=== PATIENT | female | born 1990 | race Caucasian/White ===

== ENCOUNTER → 2017-05-19 | Outpatient (CLI) | payer OTHER ==
--- NOTE | 2017-05-19 10:57 | RAD ---
Ultrasound bilateral breasts Indication: Left breast pain. Left breast mass. Family history of breast cancer. Technique: Bilateral breast ultrasound. Comparison: None Findings: No solid or cystic lesions seen in the interrogated bilateral breasts. The skin is within normal limits. Impression: No sonographic abnormality seen in the breasts.
--- NOTE | 2017-05-19 12:08 | RAD ---
DATE: 05/19/2017 EXAM: MAMMO KEYSHA DIAG BILAT HISTORY: Left axillary breast pain. Mother had breast cancer. Baseline mammogram. COMPARISON: None This study was interpreted with the benefit of Computerized Aided Detection (CAD). FINDINGS: Breast Density: SCATTERED The breast parenchyma shows scattered fibroglandular densities. Breast parenchyma level B. The skin and nipples are within normal limits. No suspicious calcifications, spiculated masses or areas of architectural distortion. There is an oval-shaped mass with well-circumscribed margins in the upper outer posterior right breast measuring 1.1 cm approximately 13 cm from the nipple on MLO view. No mammographic abnormality in the left breast. IMPRESSION: Suggestion of intraparenchymal lymph node in the upper outer right breast. Additional ultrasound images were obtained after the initial ultrasound from the same day of the right breast in the upper outer quadrant. Please see separate ultrasound report from the same day. BI-RADS CATEGORY: 3 PROBABLE BENIGN FINDING(S-SHORT INTERVAL FOLLOW-UP SUGGESTED RECOMMENDED FOLLOW-UP: 6M 6 MONTH FOLLOW-UP. Ultrasound of the right upper outer quadrant in 6 months. PQRS compliance statement: Patient information was entered into a reminder system with a target due date for the next mammogram. Mammography is a sensitive method for finding small breast cancers, but it does not detect them all and is not a substitute for careful clinical examination. A negative mammogram does not negate a clinically suspicious finding and should not result in delay in biopsying a clinically suspicious abnormality. "Our facility is accredited by the [employer] Mammography Program."
== END | disposition home or self-care (01) ==
LOC: KCIC US 09:52
PROVIDERS: ATTEND Nurse Practitioner
DX: N63.20 Unspecified lump in the left breast, unspecified quadrant (principal); N64.4 Mastodynia; Z80.3 Family history of malignant neoplasm of breast
CPT/HCPCS: 76641; G0204; G0279; 77062; 77066

== ENCOUNTER 2017-06-01 14:13 | Day surgery (SDC) | payer OTHER ==
[~2017-06-01 14:13] MED LIST: DESFLURANE 61 TO 120 MINUTES IH ONE; DEXAMETHASONE SOD PHOS 20 MG/5 ML VIAL. ONE; GLYCOPYRROLATE 1 MG/5 ML VIAL. ONE; HYDROmorphone 2 MG/ML VIAL IV PRN; IV RINGERS,LACTATED 1000ML 1,000 ML IV SCH; LIDOCAINE 1% PF 2 ML VIAL. ID PRN; LIDOCAINE 2% PF Vial for OR 5 ML VIAL. ONE; MIDAZOLAM HCL/PF 2 MG/2 ML VIAL. ONE; MORPHINE SULFATE 2 MG/ML DISP.SYRIN. IV PRN; ONDANSETRON PF 4 MG/2 ML VIAL. IV PRN; ONDANSETRON PF 4 MG/2 ML VIAL. ONE; PHENYLEPHRINE 0.25% NASAL SPRAY 15ML BOTTLE. NS ONE; PROCHLORPERAZINE 10 MG/2 ML VIAL. IV PRN; PROPOFOL 0 ML IV ONE; PROPOFOL 20 ML IV ONE; ROCURONIUM 100 MG/10 ML VIAL. ONE; ROCURONIUM 50 MG/5 ML VIAL. ONE; SCOPOLAMINE 1.5MG PATCH. TD ONE; diphenhydrAMINE 50 MG/ML VIAL ONE; fentaNYL PF VIAL 100 MCG/2 ML VIAL IV PRN; fentaNYL PF VIAL 100 MCG/2 ML VIAL ONE; fentaNYL PF VIAL 250 MCG/5 ML VIAL ONE
[2017-06-01] MEDS ORDERED: NEOSTIGMINE METHYLSULFATE 5 MG/5 ML SYRINGE. ONE (14:27)
[2017-06-01] MEDS ORDERED: oxyCODONE/APAP 5/325 1 TAB TABLET PO PRN (14:30)
[2017-06-01 15:02] LABS: NEG OBC UR NEG; POS OBC UR POS
[2017-06-01] MEDS ORDERED: SEVOFLURANE 16 TO 30 MINUTES. IH ONE (15:05)
[2017-06-01] MEDS ORDERED: KETOROLAC 30 MG/ML INJ FOR OR. INJ ONE (15:05)
--- NOTE | 2017-06-01 15:34 | DISCH ---
DISCHARGE INSTRUCTIONS Condition on Discharge Condition on Discharge: Stable Activity After Discharge Activity Instructions for Disc: Avoid exertion Lifting Instructions after Dis: No heavy lifting Diet after Discharge Diet after Discharge: Level III Dysph, Chopped Wound Incision Care Wound/Incision Care: Ice to area for comfort Contacting the DRBill after DC Call your doctor for: If your condition worsens BETTE DARBY MD Jun 01, 2017 15:33
--- NOTE | 2017-06-01 15:36 | PDOC4 ---
OPERATIVE NOTE Date: Date: Jun 01, 2017 Pre-Op Diagnosis: chronic tonsillitis Post-Op Diagnosis: ABHI Procedure Performed: tonsillectomy & adenoidectomy Surgeon: Dr. Dafne Cao Anesthesia Type: GETA Blood Loss: <20mL Specimans Obtained: left and right tonsil Findings: 1. 3+ cryptic tonsils 2. Minimal adenoid tissue 3. Swollen distal uvula at end of the case 4. Inflammation of posterior nasal cavity Complications: none Operative Note: Dictation #[id number] DAFNE CAO MD Jun 01, 2017 15:36
[2017-06-01] MEDS ORDERED: oxyCODONE ORAL SOLUTION 5 MG/5 ML SOLUTION PEG STA (15:55)
[2017-06-01] MEDS ORDERED: DOCU-109 PO (16:03)
[2017-06-01] MEDS ORDERED: ONDA4TAB10 SL (16:05)
[2017-06-01] MEDS ORDERED: ACET160O49 PO (16:06)
[2017-06-01 16:45] VITALS: BP 139/65
--- NOTE | 2017-06-01 17:04 | OP ---
DATE OF SURGERY: 06/01/2017 PREOPERATIVE DIAGNOSIS: Chronic tonsillitis. POSTOPERATIVE DIAGNOSIS: Chronic tonsillitis. PROCEDURE PERFORMED: Tonsillectomy and adenoidectomy. SURGEON: Dafne Cao MD ANESTHESIA: General endotracheal anesthesia. INDICATIONS FOR SURGERY: The patient is a 27-year-old female with a history of chronic tonsillitis. The patient has been suffering with monthly infections for the past several years. The decision was made based on the above procedure. After risks, benefits, and alternatives of surgery were thoroughly discussed with the patient, an informed consent was obtained. INTRAOPERATIVE FINDINGS: 1. A 3+ tonsillar hypertrophy with cryptic tonsils. 2. Minimal residual adenoid tissue. 3. At the end of the case, there was significant uvula edema and so the uvula was trimmed. 4. Significant inflammation of the posterior inferior turbinates within the nasal cavity. ESTIMATED BLOOD LOSS: Less than 5 mL. DESCRIPTION OF THE PROCEDURE: The patient was brought back to the operating room per anesthesia and intubated in standard fashion. The patient was then turned 90 degrees in the room. A shoulder roll was placed under her shoulders and her head was draped in the standard fashion. McIvor mouth gag was used to expose the patient's oropharynx and place the patient in suspension. On palpation, there was no evidence of a submucosal cleft to the soft palate or medialized carotid arteries. The red rubber catheter was inserted through the patient's nose and out through the patient's oropharynx to elevate the soft palate. Laryngeal mirror was then used to visualize the patient's nasopharynx. The patient had minimal residual adenoid tissue and these were bovied down using suction Bovie electrocautery. There was significant inflammation noted of the posterior nasal cavity and especially along the posterior aspect of the inferior turbinates. No tanisha purulence or discharge was noted. The left and followed by the right tonsil was dissected off the tonsillar fossa using Bovie electrocautery. Adequate hemostasis was confirmed using suction Bovie electrocautery. The anterior and tonsillar pillars were then closed with simple interrupted sutures of 3-0 Vicryl. I ensured adequate hemostasis in the nasopharynx and oropharynx. Orogastric tube was placed to suction out all stomach and hypopharyngeal contents. On visualization of the oropharynx at the end of the case, the patient was found to have significant distal uvula edema. To prevent further edema and swelling, the distal aspect of the uvula was trimmed off in a skiving fashion and adequate hemostasis of the residual uvula was obtained. After this was completed, the patient was turned back over to anesthesia and extubated without complication. All sponge, needle and instrument counts were correct at the end of the case. COMPLICATIONS: None. DISPOSITION: Stable and transferred to recovery room. DAFNE CAO MD DR: FEROZ/mariela JOB#: [id number] / [id number] ALO
--- NOTE | 2017-06-05 13:44 | PATHOLOGY ---
PATHOLOGY REPORT * * * * * * * * FINAL DIAGNOSIS: Bilateral palatine tonsils, excision: - Chronic tonsillitis. (JPM:mml; 06/05/2017) REPORT ELECTRONICALLY SIGNED BY: Collins Heard M.D. DATE/TIME: 06/05/2017 13:42 * * * * * * * * GROSS PATHOLOGY: Received in formalin, labeled "ray Keen," are two tonsils measuring 2.8 x 1.8 x 1.3 cm and 2.5 x 2.1 x 1.0 cm in maximum dimensions. The mucosal surfaces are thorpe with the typical crypts identified. Sectioning reveals lobulated, homogeneous light thorpe cut surfaces with no grossly identifiable lesions. [employer] Professor sections from each tonsil are submitted in cassette A1. (SDY; 06/02/2017) INITIAL CPT CODE(S): A; 47751 Professional services [place] [facility] [place] [address] Technical services performed by [facility] at [address] [place] [address], [facility] [address] [place] [address]. SPECIMEN(S) RECEIVED: A.Tonsils CLINICAL HISTORY: Chronic tonsillitis PATIENT: PABLO RODRIGUEZ /AGE: 1004/12/1990 (Age: 27) PATIENT #: [id number] ALT CASE #: SPECIMEN COLLECTION DATE: 06/01/2017 SPECIMEN RECEIVED DATE: 06/02/2017 [facility] - [address] [place] [address] - PHONE: [phone] * * * END OF REPORT * * *
== END 2017-06-01 17:16 | disposition home or self-care (01) ==
LOC: SURG 14:13
PROVIDERS: ATTEND Otolaryngology
DX: J35.01 Chronic tonsillitis (principal); E66.9 Obesity, unspecified; F32.9 Major depressive disorder, single episode, unspecified; Z90.49 Acquired absence of other specified parts of digestive tract; Z72.0 Tobacco use
CPT/HCPCS: 42821; 81025; J1100; J1200; J1885; J2250; J2405; J2704; J2710; J3010; J3490; J2001

== ENCOUNTER 2018-03-23 11:56 | Emergency (ER) | payer OTHER ==
[~2018-03-23] VITALS: Ht 165.1 cm; Wt 86.2 kg
[~2018-03-23 11:56] MED LIST changes: +ACET160O49 PO; -DESFLURANE 61 TO 120 MINUTES IH ONE; -DEXAMETHASONE SOD PHOS 20 MG/5 ML VIAL. ONE; +DOCU-109 PO; -GLYCOPYRROLATE 1 MG/5 ML VIAL. ONE; -HYDROmorphone 2 MG/ML VIAL IV PRN; -IV RINGERS,LACTATED 1000ML 1,000 ML IV SCH; -LIDOCAINE 1% PF 2 ML VIAL. ID PRN; -LIDOCAINE 2% PF Vial for OR 5 ML VIAL. ONE; -MIDAZOLAM HCL/PF 2 MG/2 ML VIAL. ONE; -MORPHINE SULFATE 2 MG/ML DISP.SYRIN. IV PRN; +ONDA4TAB10 SL; -ONDANSETRON PF 4 MG/2 ML VIAL. IV PRN; -ONDANSETRON PF 4 MG/2 ML VIAL. ONE; -PHENYLEPHRINE 0.25% NASAL SPRAY 15ML BOTTLE. NS ONE; -PROCHLORPERAZINE 10 MG/2 ML VIAL. IV PRN; -PROPOFOL 0 ML IV ONE; -PROPOFOL 20 ML IV ONE; -ROCURONIUM 100 MG/10 ML VIAL. ONE; -ROCURONIUM 50 MG/5 ML VIAL. ONE; -SCOPOLAMINE 1.5MG PATCH. TD ONE; -diphenhydrAMINE 50 MG/ML VIAL ONE; -fentaNYL PF VIAL 100 MCG/2 ML VIAL IV PRN; -fentaNYL PF VIAL 100 MCG/2 ML VIAL ONE; -fentaNYL PF VIAL 250 MCG/5 ML VIAL ONE
[2018-03-23] MEDS: IOHEXOL 300 MG/ML 100ML VIAL. IV ONE (12:30)
[2018-03-23] MEDS ORDERED: CONTRAST GIVEN. MC PRN (12:30)
[2018-03-23 12:40] LABS: BASO % 0 % (0-3); EOS # 0.1 x10^3/uL (0.0-0.7); EOS % 1 % (0-3); HEMATOCRIT 38.2 % (36.0-47.0); HEMOGLOBIN 13.2 g/dL (12.0-15.5); LYMPH # 1.8 x10^3/uL (1.0-4.8); LYMPH % 11 % (24-48); MEAN CORPUSCULAR HEMOGLOBIN 31 pg (25-35); MEAN CORPUSCULAR HGB CONC 35 g/dL (31-37); MEAN CORPUSCULAR VOLUME 90 fL (79-100); MONO # 1.2 x10^3/uL (0.0-1.1); MONO % 7 % (0-9); NEUT # 12.5 x10^3uL (1.8-7.7); NEUT % 80 % (31-73); PLATELET COUNT 316 x10^3/uL (140-400); RED BLOOD COUNT 4.26 x10^6/uL (3.50-5.40); RED CELL DISTRIBUTION WIDTH 13.3 % (11.5-14.5); WHITE BLOOD COUNT 15.6 x10^3/uL (4.0-11.0)
[2018-03-23 12:40] LABS: BILIRUBIN,URINE NEGATIVE (NEG); CLARITY,URINE CLEAR; COLOR,URINE YELLOW; NITRITE,URINE NEGATIVE (NEG); PROTEIN,URINE NEGATIVE (NEG-TRACE); UROBILINOGEN,URINE 0.2 mg/dL (0.2 mg/dL)
[2018-03-23] MEDS: IV NORMAL SALINE 1000ML BAG 1,000 ML IV ONE (12:41)
[2018-03-23] MEDS: ONDANSETRON PF 4 MG/2 ML VIAL. IV ONE (12:41)
[2018-03-23] MEDS: FAMOTIDINE 20 MG/2 ML VIAL IVP ONE (12:41)
[2018-03-23] MEDS: KETOROLAC 30 MG/ML VIAL. IV ONE (12:41)
[2018-03-23 12:46] LABS: CREATININE 0.7 mg/dL (0.6-1.0); GFR 101.1; POTASSIUM 3.7 mmol/L (3.5-5.1)
[2018-03-23 12:50] LABS: BACTERIA,URINE MODERATE /HPF (0-FEW); SQUAMOUS EPITHELIAL CELL,UR MOD /LPF
[2018-03-23 12:52] LABS: ALBUMIN/GLOBULIN RATIO 1.1 (1.0-1.7); MAGNESIUM 1.7 mg/dL (1.8-2.4); TOTAL BILIRUBIN 0.4 mg/dL (0.2-1.0); TOTAL PROTEIN 7.8 g/dL (6.4-8.2)
--- NOTE | 2018-03-23 13:37 | RAD ---
CT of the abdomen and pelvis with contrast, 03/23/2018: HISTORY: Right lower quadrant pain Multidetector CT imaging was performed following an IV bolus injection of iodinated contrast material. No oral contrast material was administered for this study. The gallbladder is surgically absent. No hepatic abnormality is seen. The pancreas is unremarkable. The spleen is of normal size. No renal or adrenal abnormality is detected. No abdominal or pelvic adenopathy is seen. There appear to be small cysts in the left ovary. There is a small amount of free fluid in the cul-de-sac. The bowel loops are not dilated. The appendix is visualized and shows no abnormality. No free air is evident in the abdomen or pelvis. IMPRESSION: 1. Small amount of free fluid in the cul-de-sac which can be on a physiologic basis. 2. No evidence of appendicitis. PQRS Compliance Statement: One or more of the following individualized dose reduction techniques were utilized for this examination: 1. Automated exposure control 2. Adjustment of the mA and/or kV according to patient size 3. Use of iterative reconstruction technique Electronically signed by: Kumar Clement MD (03/23/2018 1:32 PM) [facility]
[2018-03-23 13:45] VITALS: BP 125/68
--- NOTE | 2018-03-23 13:51 | PHYS DOC ---
Past Medical History Past Medical History: Depression Additional Past Medical Histor: PCOS, endometriosis Past Surgical History: Cholecystectomy, Tonsillectomy, Other Additional Past Surgical Histo: cyst removal; ovarian tumor removal, Alcohol Use: None Drug Use: None Adult General Chief Complaint Chief Complaint: ABDOMINAL PAIN HPI HPI Patient is a 27 year old [f__sex] who presents with [] Review of Systems Review of Systems Constitutional: Denies fever or chills [] Eyes: Denies change in visual acuity, redness, or eye pain [] HENT: Denies nasal congestion or sore throat [] Respiratory: Denies cough or shortness of breath [] Cardiovascular: No additional information not addressed in HPI [] GI: Denies abdominal pain, nausea, vomiting, bloody stools or diarrhea [] : Denies dysuria or hematuria [] Musculoskeletal: Denies back pain or joint pain [] Integument: Denies rash or skin lesions [] Neurologic: Denies headache, focal weakness or sensory changes [] Endocrine: Denies polyuria or polydipsia [] All other systems were reviewed and found to be within normal limits, except as documented in this note. Current Medications Current Medications Current Medications Medications (Trade) Dose Ordered Sig/Chetan Start Time Stop Time Status Last Admin Dose Admin Acetaminophen (Tylenol) 500 mg 1X ONCE 03/23/18 15:15 03/23/18 15:16 DC 03/23/18 15:25 500 MG Famotidine (Pepcid Vial) 20 mg 1X ONCE 03/23/18 12:30 03/23/18 12:31 DC 03/23/18 12:41 20 MG Info (CONTRAST GIVEN -- Rx MONITORING) 1 each PRN DAILY PRN 03/23/18 12:30 03/25/18 12:29 Iohexol (Omnipaque 300 Mg/ml) 75 ml 1X ONCE 03/23/18 12:30 03/23/18 12:31 DC 03/23/18 12:30 75 ML Ketorolac Tromethamine (Toradol 30mg Vial) 15 mg 1X ONCE 03/23/18 12:30 03/23/18 12:31 DC 03/23/18 12:41 15 MG Ondansetron HCl (Zofran) 4 mg 1X ONCE 03/23/18 12:30 03/23/18 12:31 DC 03/23/18 12:41 4 MG Sodium Chloride 1,000 ml @ 1,000 mls/hr 1X ONCE 03/23/18 12:30 03/23/18 13:29 DC 03/23/18 12:41 1,000 MLS/HR Allergies Allergies Allergies Coded Allergies Type Severity Reaction Last Updated Verified No Known Drug Allergies 06/01/17 No Physical Exam Physical Exam Constitutional: Well developed, well nourished, no acute distress, non-toxic appearance. [] HENT: Normocephalic, atraumatic, bilateral external ears normal, oropharynx moist, no oral exudates, nose normal. [] Eyes: PERRLA, EOMI, conjunctiva normal, no discharge. [] Neck: Normal range of motion, no tenderness, supple, no stridor. [] Cardiovascular:Heart rate regular rhythm, no murmur [] Lungs & Thorax: Bilateral breath sounds clear to auscultation [] Abdomen: Bowel sounds normal, soft, no tenderness, no masses, no pulsatile masses. [] Skin: Warm, dry, no erythema, no rash. [] Back: No tenderness, no CVA tenderness. [] Extremities: No tenderness, no cyanosis, no clubbing, ROM intact, no edema. [] Neurologic: Alert and oriented X 3, normal motor function, normal sensory function, no focal deficits noted. [] Psychologic: Affect normal, judgement normal, mood normal. [] Current Patient Data Vital Signs Vital Signs Date Time Temp Pulse Resp B/P (MAP) Pulse Ox O2 Delivery O2 Flow Rate FiO2 03/23/18 13:45 91 14 125/68 (87) 99 Room Air 03/23/18 12:06 98.8 98.8 Lab Values Laboratory Tests Test 03/23/18 12:19 03/23/18 12:27 03/23/18 12:30 Urine Collection Type Unknown Urine Color Yellow Urine Clarity Clear Urine pH 5.0 Urine Specific Dixon >=1.030 Urine Protein Negative mg/dL (NEG-TRACE) Urine Glucose (UA) Negative mg/dL (NEG) Urine Ketones (Stick) Negative mg/dL (NEG) Urine Blood Small (NEG) Urine Nitrite Negative (NEG) Urine Bilirubin Negative (NEG) Urine Urobilinogen Dipstick 0.2 mg/dL (0.2 mg/dL) Urine Leukocyte Esterase Negative (NEG) Urine RBC 1-2 /HPF (0-2) Urine WBC 1-4 /HPF (0-4) Urine Squamous Epithelial Cells Mod /LPF Urine Bacteria Moderate /HPF (0-FEW) Urine Mucus Marked /LPF POC Urine HCG, Qualitative Hcg negative (Negative) White Blood Count 15.6 x10^3/uL (4.0-11.0) H Red Blood Count 4.26 x10^6/uL (3.50-5.40) Hemoglobin 13.2 g/dL (12.0-15.5) Hematocrit 38.2 % (36.0-47.0) Mean Corpuscular Volume 90 fL (79-100) Mean Corpuscular Hemoglobin 31 pg (25-35) Mean Corpuscular Hemoglobin Concent 35 g/dL (31-37) Red Cell Distribution Width 13.3 % (11.5-14.5) Platelet Count 316 x10^3/uL (140-400) Neutrophils (%) (Auto) 80 % (31-73) H Lymphocytes (%) (Auto) 11 % (24-48) L Monocytes (%) (Auto) 7 % (0-9) Eosinophils (%) (Auto) 1 % (0-3) Basophils (%) (Auto) 0 % (0-3) Neutrophils # (Auto) 12.5 x10^3uL (1.8-7.7) H Lymphocytes # (Auto) 1.8 x10^3/uL (1.0-4.8) Monocytes # (Auto) 1.2 x10^3/uL (0.0-1.1) H Eosinophils # (Auto) 0.1 x10^3/uL (0.0-0.7) Basophils # (Auto) 0.0 x10^3/uL (0.0-0.2) Sodium Level 140 mmol/L (136-145) Potassium Level 3.7 mmol/L (3.5-5.1) Chloride Level 100 mmol/L (98-107) Carbon Dioxide Level 26 mmol/L (21-32) Anion Gap 14 (6-14) Blood Urea Nitrogen 13 mg/dL (7-20) Creatinine 0.7 mg/dL (0.6-1.0) Estimated GFR (Cockcroft-Gault) 101.1 BUN/Creatinine Ratio 19 (6-20) Glucose Level 103 mg/dL (70-99) H Calcium Level 9.0 mg/dL (8.5-10.1) Magnesium Level 1.7 mg/dL (1.8-2.4) L Total Bilirubin 0.4 mg/dL (0.2-1.0) Aspartate Amino Transferase (AST) 22 U/L (15-37) Alanine Aminotransferase (ALT) 27 U/L (14-59) Alkaline Phosphatase 62 U/L (46-116) Total Protein 7.8 g/dL (6.4-8.2) Albumin 4.0 g/dL (3.4-5.0) Albumin/Globulin Ratio 1.1 (1.0-1.7) Lipase 163 U/L (73-393) Laboratory Tests 03/23/18 12:30 Laboratory Tests 03/23/18 12:30 Microbiology 03/23/18 Wet Prep - Final, Complete EKG EKG [] Radiology/Procedures Radiology/Procedures PROCEDURE: CT ABD PELV W/ IV CONTRST ONLY CT of the abdomen and pelvis with contrast, 03/23/2018: HISTORY: Right lower quadrant pain Multidetector CT imaging was performed following an IV bolus injection of iodinated contrast material. No oral contrast material was administered for this study. The gallbladder is surgically absent. No hepatic abnormality is seen. The pancreas is unremarkable. The spleen is of normal size. No renal or adrenal abnormality is detected. No abdominal or pelvic adenopathy is seen. There appear to be small cysts in the left ovary. There is a small amount of free fluid in the cul-de-sac. The bowel loops are not dilated. The appendix is visualized and shows no abnormality. No free air is evident in the abdomen or pelvis. IMPRESSION: 1. Small amount of free fluid in the cul-de-sac which can be on a physiologic basis. 2. No evidence of appendicitis. PQRS Compliance Statement: One or more of the following individualized dose reduction techniques were utilized for this examination: 1. Automated exposure control 2. Adjustment of the mA and/or kV according to patient size 3. Use of iterative reconstruction technique Electronically signed by: Kumar Clement MD (03/23/2018 1:32 PM) [facility] Course & Med Decision Making Course & Med Decision Making Pertinent Labs and Imaging studies reviewed. (See chart for details) [] Dragon Disclaimer Dragon Disclaimer This electronic medical record was generated, in whole or in part, using a voice recognition dictation system. Departure Departure Impression: Primary Impression: Abdominal pain Additional Impression: Pelvic pain Disposition: 01 HOME, SELF-CARE Condition: STABLE Referrals: TIFF GIMENEZ MD (PCP) Patient Instructions: Abdominal Pain (Nonspecific), Pelvic Pain, Female, Easy- to-Read Scripts Ondansetron (ONDANSETRON ODT) 4 Mg Tab.rapdis 1 TAB PO PRN Q6-8HRS, #16 TAB Prov: ARNOLDO HAYES DO 03/23/18 Problem Qualifiers Primary Impression: Abdominal pain Abdominal location: unspecified location Qualified Codes: R10.9 - Unspecified abdominal pain ARNOLDO HAYES DO Mar 23, 2018 13:51
--- NOTE | 2018-03-23 14:58 | RAD ---
Pelvic ultrasound, 03/23/2018: HISTORY: Right-sided pain Transabdominal and transvaginal scans were obtained. The uterus measures 8 x 4.5 x 4.1 cm. There is thickening of the central uterine echo complex which measures 1.4 cm. This likely related to the stage of the patient's menstrual cycle. The uterus is otherwise unremarkable. The left ovary measures 4.5 x 3.8 x 2.8 cm. It contains small cysts, the largest of which measures approximately 2 cm. The right ovary measures 3.7 x 2.9 x 1.9 cm. It contains small follicular cysts. There is blood flow in both ovaries. There is no evidence of ovarian torsion. A small amount of free fluid is noted in the cul-de-sac. IMPRESSION: 1. Mild thickening of the central uterine echo complex which is probably related to the patient's menstrual cycle. 2. Small left ovarian cyst. 3. Small amount of free fluid in the pelvis. This amount of fluid can be on a physiologic basis. Electronically signed by: Kumar Clement MD (03/23/2018 2:55 PM) [facility]
[2018-03-23] MEDS: ACETAMINOPHEN 500 MG TABLET PO ONE (15:25)
[2018-03-23] MEDS ORDERED: ONDA4TAB12 PO (16:12)
== END 2018-03-23 16:17 | disposition home or self-care (01) ==
LOC: ER 11:56
DX: R10.9 Unspecified abdominal pain (principal); R10.2 Pelvic and perineal pain; Z90.49 Acquired absence of other specified parts of digestive tract
CPT/HCPCS: 36415; 74177; 76830; 76856; 80053; 81001; 81025; 83690; 83735; 85025; 96374; 96375; 99285; J1885; J2405; J7030; Q0111; Q9967; S0028; 87086

== ENCOUNTER → 2019-03-19 | Outpatient (CLI) | payer OTHER ==
[~2019-03-19] MED LIST changes: +ONDA4TAB12 PO
[2019-03-19 10:27] LABS: BASO % 0 % (0-3); EOS % 0 % (0-3); HEMATOCRIT 37.5 % (36.0-47.0); HEMOGLOBIN 12.8 g/dL (12.0-15.5); LYMPH # 1.7 x10^3/uL (1.0-4.8); LYMPH % 11 % (24-48); MEAN CORPUSCULAR HEMOGLOBIN 30 pg (25-35); MEAN CORPUSCULAR HGB CONC 34 g/dL (31-37); MEAN CORPUSCULAR VOLUME 89 fL (79-100); MONO # 1.1 x10^3/uL (0.0-1.1); MONO % 7 % (0-9); NEUT # 13.4 x10^3/uL (1.8-7.7); NEUT % 83 % (31-73); PLATELET COUNT 314 x10^3/uL (140-400); RED BLOOD COUNT 4.23 x10^6/uL (3.50-5.40); RED CELL DISTRIBUTION WIDTH 13.3 % (11.5-14.5); WHITE BLOOD COUNT 16.3 x10^3/uL (4.0-11.0)
[2019-03-19 10:37] LABS: ALBUMIN 3.6 g/dL (3.4-5.0); ALBUMIN/GLOBULIN RATIO 0.9 (1.0-1.7); C-REACTIVE PROTEIN 61.1 mg/L (0-3.3); CALCIUM 8.8 mg/dL (8.5-10.1); CREATININE 0.8 mg/dL (0.6-1.0); POTASSIUM 3.7 mmol/L (3.5-5.1); TOTAL BILIRUBIN 0.5 mg/dL (0.2-1.0); TOTAL PROTEIN 7.6 g/dL (6.4-8.2)
[2019-03-19 10:44] LABS: MONONUCLEOSIS PATIENT NEGATIVE (NEGATIVE)
[2019-03-19 11:35] LABS: PREG TEST PT QUAL NEGATIVE (NEG)
[2019-03-19 12:46] LABS: % LYMPHS 10 % (24-48); % MONOS 6 % (0-10); % SEGS 84 % (35-66); PLT ESTIMATE ADEQUATE (ADEQUATE)
== END | disposition home or self-care (01) ==
LOC: LAB 09:53
PROVIDERS: ATTEND Emergency Medicine
DX: R50.9 Fever, unspecified (principal)
CPT/HCPCS: 36415; 80053; 84443; 84703; 85007; 85025; 85651; 86060; 86140; 86308

== ENCOUNTER → 2019-07-22 | Outpatient (CLI) | payer OTHER ==
--- NOTE | 2019-07-23 08:31 | RAD ---
EXAM: Ultrasound OB Greater than 14 weeks INDICATION: Screening TECHNIQUE: Real-time obstetrical ultrasound was performed with permanent freeze-frame documentation. COMPARISON: None. FINDINGS: POSITION: Breech HEART RATE: 138 bpm KARY: Subjectively normal PLACENTA: Posterior grade 1 CERVICAL LENGTH: 4.7 cm MATERNAL UTERUS: Unremarkable. MATERNAL ADNEXA: Unremarkable. AGE/DATES: Gestational Age by LMP: 18 weeks 3 days Gestation Age by US: 18 weeks 3 days EDC by LMP: December 20, 2019 EDC by US: December 20, 2019 WEIGHT: 232 grams +/- 34 grams PERCENTILE WEIGHT: Not estimated BIOMETRIC PARAMETERS: BPD: 4.2 cm corresponding with 18 weeks 5 days HC: 15.2 cm corresponding with 18 weeks 2 days AC: 12.8 cm corresponding with 18 weeks 3 days FL: 2.7 cm corresponding with 18 weeks 1 day ANATOMY: CARDIAC: Normal four chamber heart. Normal right and left ventricular outflow tracts. UMBILICAL CORD: Three-vessel cord not well shown. Normal cord insertion. BRAIN: Unremarkable. NOSE/LIPS: Not well seen SPINE: Unremarkable. EXTREMITIES: Unremarkable. STOMACH: Unremarkable. KIDNEYS: Not well shown BLADDER: Unremarkable. IMPRESSION: Grossly normal OB ultrasound demonstrating a single viable fetus in breech position, with a few anatomic details yet to be fully documented. Estimated gestational age of 18 weeks 3 days and EDC of December 20, 2019. Electronically signed by: Yeyo Garcia MD (07/23/2019 8:29 AM) [facility]
== END | disposition home or self-care (01) ==
LOC: US 14:02
PROVIDERS: ATTEND Obstetrics & Gynecology
DX: O32.1XX0 Maternal care for breech presentation, not applicable or unspecified (principal); Z3A.18 18 weeks gestation of pregnancy
CPT/HCPCS: 76805

== ENCOUNTER → 2019-09-19 | Outpatient (CLI) | payer OTHER ==
[2019-09-19 10:40] LABS: BASO % 0 % (0-3); EOS % 0 % (0-3); HEMATOCRIT 33.2 % (36.0-47.0); HEMOGLOBIN 11.3 g/dL (12.0-15.5); LYMPH # 2.2 x10^3/uL (1.0-4.8); LYMPH % 14 % (24-48); MEAN CORPUSCULAR HEMOGLOBIN 30 pg (25-35); MEAN CORPUSCULAR HGB CONC 34 g/dL (31-37); MEAN CORPUSCULAR VOLUME 88 fL (79-100); MONO # 0.8 x10^3/uL (0.0-1.1); MONO % 5 % (0-9); NEUT # 12.3 x10^3/uL (1.8-7.7); NEUT % 80 % (31-73); PLATELET COUNT 357 x10^3/uL (140-400); RED BLOOD COUNT 3.79 x10^6/uL (3.50-5.40); RED CELL DISTRIBUTION WIDTH 13.6 % (11.5-14.5); WHITE BLOOD COUNT 15.4 x10^3/uL (4.0-11.0)
== END | disposition home or self-care (01) ==
LOC: LAB 07:38
PROVIDERS: ATTEND Obstetrics & Gynecology
DX: Z34.02 Encounter for supervision of normal first pregnancy, second trimester (principal); Z3A.00 Weeks of gestation of pregnancy not specified
CPT/HCPCS: 36415; 82947; 85025; 86592; 86850; 86900; 86901

== ENCOUNTER → 2019-10-04 | Outpatient (CLI) | payer OTHER | END | disposition home or self-care (01) | LOC: LAB 10:32 | PROVIDERS: ATTEND Obstetrics & Gynecology | DX: O99.810 Abnormal glucose complicating pregnancy (principal); Z3A.00 Weeks of gestation of pregnancy not specified | CPT/HCPCS: 36415; 82947; 82950 ==

== ENCOUNTER → 2019-10-18 | Outpatient (CLI) | payer OTHER ==
--- NOTE | 2019-10-18 16:11 | RAD ---
OB ultrasound third trimester HISTORY: Incomplete survey Sonographic examination appearance was performed by transvaginal technique and multiple static images were obtained. There is a single live intrauterine with breech position. The maternal cervix is not well seen. The structures are not well seen due to advanced gestational age. There is a posterior placenta. The amount fluid volume appears normal and the amniotic fluid index measures 13 cm. The LMP of 03/15/2019 corresponds with 31 week 0 day gestational age and estimated date confinement of December 20, 2019 This may size by ultrasound is 31 weeks 6 days estimated confinement December 14, 2019 Estimated weight 1785 g +/- 264 g or 3 lbs. 15 oz. +/- 9 ounces Estimated weight percentile 52 percent BPD 8.1 cm 30 weeks 5 days Head circumference 29 cm 30 weeks 1 day Abdominal circumference 27 cm 31 weeks 1 day femur length 6.1 centimeters 31 weeks 4 days The umbilical cord is not well seen. IMPRESSION: 1. Single live intrauterine at 31 weeks has appropriate size by ultrasound 2. Visualization of structures is limited due to the advanced gestational age. Electronically signed by: Derrick Sloan III, MD (10/18/2019 4:08 PM) [id number]
== END | disposition home or self-care (01) ==
LOC: US 09:59
PROVIDERS: ATTEND Obstetrics & Gynecology
DX: Z34.93 Encounter for supervision of normal pregnancy, unspecified, third trimester (principal); Z3A.31 31 weeks gestation of pregnancy
CPT/HCPCS: 76816

== ENCOUNTER 2020-06-16 16:06 | Emergency (ER) | payer SELFPAY ==
[~2020-06-16] VITALS: Ht 165.1 cm; Wt 96.0 kg
--- NOTE | 2020-06-16 17:27 | PHYS DOC ---
Past Medical History Past Medical History: Depression Additional Past Medical Histor: PCOS, endometriosis Past Surgical History: Cholecystectomy, Tonsillectomy, Other Additional Past Surgical Histo: cyst removal; ovarian tumor removal, Smoking Status: Never Smoker Alcohol Use: None Drug Use: None General Adult EDM: Chief Complaint: GENERALIZED BODY ACHES HPI: HPI: Patient is a 30 year old female patient who presents with malaise and headache for the past day. 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 States she has had a decreased appetite for the past couple days, which she relates may be because of her . States she has a sore throat and nasal congestion with a runny nose and some sinus pressure. States she has also had a headache intermittently without visual changes. She took a tylenol this afternoon and started to feel a little better after it, but continues to have some malaise. Denies loss of smell or loss of taste. She is 11 weeks , has followed up with OBGYN. Denies any fevers. Review of Systems: Review of Systems: Constitutional: Denies fever or chills. [] Does report malaise Eyes: Denies change in visual acuity. [] HENT: Reports nasal congestion and sore throat today. [] Respiratory: Denies cough or shortness of breath. [] Cardiovascular: Denies chest pain or edema. [] GI: Denies abdominal pain, nausea, vomiting, bloody stools or diarrhea. [] : Denies dysuria. [] Musculoskeletal: Denies back pain or joint pain. [] Integument: Denies rash. [] Neurologic: Denies focal weakness or sensory changes. [] Reports i ntermittent headaches Endocrine: Denies polyuria or polydipsia. [] Lymphatic: Denies swollen glands. [] Psychiatric: Denies depression or anxiety. [] Heart Score: Risk Factors: Risk Factors: DM, Current or recent (<one month) smoker, HTN, HLP, family history of CAD, obesity. Risk Scores: Score 0 - 3: 2.5% MACE over next 6 weeks - Discharge Home Score 4 - 6: 20.3% MACE over next 6 weeks - Admit for Clinical Observation Score 7 - 10: 72.7% MACE over next 6 weeks - Early Invasive Strategies Allergies: Allergies: Allergies Coded Allergies Type Severity Reaction Last Updated Verified No Known Drug Allergies 06/01/17 No Physical Exam: PE: Constitutional: Well developed, well nourished, no acute distress, non-toxic appearance. [] HENT: Normocephalic, atraumatic, bilateral external ears normal, oropharynx moist, no oral exudates, nose normal. Normal oropharynx. tonsils absent. [] Eyes: PERRLA, EOMI, conjunctiva normal, no discharge. [] Neck: Normal range of motion, no tenderness, supple, no stridor. [] Cardiovascular:Heart rate regular rhythm, no murmur [] Lungs & Thorax: Bilateral breath sounds clear to auscultation [] Abdomen: Bowel sounds normal, soft, no tenderness, no masses, no pulsatile masses. [] Skin: Warm, dry, no erythema, no rash. [] Back: No tenderness, no CVA tenderness. [] Extremities: No tenderness, no cyanosis, no clubbing, ROM intact, no edema. [] Neurologic: Alert and oriented X 3, normal motor function, normal sensory function, no focal deficits noted. [] Psychologic: Affect normal, judgement normal, mood normal. [] EKG: EKG: [] Radiology/Procedures: Radiology/Procedures: [] Course & Med Decision Making: Course & Med Decision Making Pertinent Labs and Imaging studies reviewed. (See chart for details) []Reviewed COVID testing. Negative rapid. Drageddi Disclaimer: Portia Disclaimer: This electronic medical record was generated, in whole or in part, using a voice recognition dictation system. Departure Departure Impression: Primary Impression: COVID-19 virus not detected Disposition: 01 DC HOME SELF CARE/HOMELESS Condition: GOOD Referrals: TIFF GIMENEZ MD (PCP) Patient Instructions: Upper Respiratory Infection, Adult Additional Instructions: Your rapid COVID test was negative today. You should continue to use precautions to limit your exposure. You may consider Over the counter decongestants as recommended by your OBGYN. DEWAYNE SOLOMON APRN Jun 16, 2020 17:26
[2020-06-16 17:59] VITALS: BP 114/58
--- NOTE | 2020-06-18 08:55 | NUR ---
IP:Attempted to contact pt concerning the COVID results. No answer. Left a voicemail to return the call. Addendum: 06/18/20 at 0858 by BLAINE PABLO RN IP: Pt returned the call and I informed her of the negative COVID results. Pt verbalized understanding.
== END 2020-06-16 18:51 | disposition home or self-care (01) ==
LOC: ER 16:06
DX: J02.9 Acute pharyngitis, unspecified (principal); Z20.828 Contact with and (suspected) exposure to other viral communicable diseases; M79.10 Myalgia, unspecified site; R51.9 Headache, unspecified; R09.81 Nasal congestion; R09.89 Other specified symptoms and signs involving the circulatory and respiratory systems
CPT/HCPCS: 87426; 99283; C9803; U0003

== ENCOUNTER → 2020-07-01 | Outpatient (CLI) | payer OTHER ==
[2020-06-16 17:59] VITALS: BP 114/58
--- NOTE | 2020-07-02 09:17 | RAD ---
US OB 14+ WKS 07/01/2020 2:17 PM INDICATION: Confirmation of dates COMPARISON: None available. TECHNIQUE: Sonographic evaluation of the pelvis was performed utilizing grayscale, color Doppler and spectral waveform analysis. FINDINGS: The uterus measures 16.9 x 11.6 x 6.6 cm. Cervix is long and closed measuring 5.8 cm. Single circumsc ribed intrauterine gestational sac is identified. pole is visualized with crown-rump length beatriz suring 6 cm compatible with a gestational age of 12 weeks 3 days. heart tones measure 157 bpm. No significant subchorionic hemorrhage. Normal amniotic fluid. Right ovary is not visualized. Left ovary measures 3.8 x 3.2 x 2.5 cm. Arterial and venous waveform i dentified at time of imaging. No significant free fluid identified within the pelvis. IMPRESSION: 1. Single viable intrauterine gestation is identified at crown-rump length compatible gestational age of 12 weeks 3 days and heart tones measure 157 bpm. Correlate with LMP. Electronically signed by: Sandy Chavez MD (07/02/2020 9:14 AM) [id number]
== END ==
LOC: US 14:13
PROVIDERS: ATTEND Obstetrics & Gynecology
DX: Z34.91 Encounter for supervision of normal pregnancy, unspecified, first trimester (principal); Z3A.12 12 weeks gestation of pregnancy
CPT/HCPCS: 76801

== ENCOUNTER → 2020-07-14 | Outpatient (CLI) | payer OTHER ==
[2020-06-16 17:59] VITALS: BP 114/58
[2020-07-14 14:35] LABS: BASO # 0.1 x10^3/uL (0.0-0.2); BASO % 0 % (0-3); EOS # 0.1 x10^3/uL (0.0-0.7); EOS % 1 % (0-3); HEMATOCRIT 34.5 % (36.0-47.0); HEMOGLOBIN 11.6 g/dL (12.0-15.5); LYMPH # 2.6 x10^3/uL (1.0-4.8); LYMPH % 18 % (24-48); MEAN CORPUSCULAR HEMOGLOBIN 30 pg (25-35); MEAN CORPUSCULAR HGB CONC 34 g/dL (31-37); MEAN CORPUSCULAR VOLUME 89 fL (79-100); MONO # 0.5 x10^3/uL (0.0-1.1); MONO % 4 % (0-9); NEUT % 77 % (31-73); PLATELET COUNT 296 x10^3/uL (140-400); RED BLOOD COUNT 3.88 x10^6/uL (3.50-5.40); WHITE BLOOD COUNT 14.2 x10^3/uL (4.0-11.0)
[2020-07-14 15:27] LABS: FREE T4 0.99 ng/dL (0.76-1.46); THYROID STIM HORMONE (TSH) 2.003 uIU/mL (0.358-3.74)
== END ==
LOC: LAB 14:01
PROVIDERS: ATTEND Obstetrics & Gynecology
DX: Z34.91 Encounter for supervision of normal pregnancy, unspecified, first trimester (principal); Z3A.14 14 weeks gestation of pregnancy
CPT/HCPCS: 36415; 84439; 84443; 85025; 86592; 86703; 86762; 86803; 86850; 86900; 86901; 87086; 87340

== ENCOUNTER → 2020-08-28 | Outpatient (CLI) | payer OTHER ==
--- NOTE | 2020-08-28 16:36 | RAD ---
EXAM: OB ULTRASOUND, > 14 WEEKS HISTORY: anatomy survey. COMPARISON: 07/01/2020 TECHNIQUE: Multiple grayscale images, color Doppler, and M-mode images of the uterus are obtained. FINDINGS: There is a single intrauterine gestation in cephalic presentation. The placenta is fundal in location without evidence of placenta previa. The amount of amniotic fluid appears appropriate. Amniotic flu id index is grossly normal Cervical length is 5.2 cm. Biometrical data: BPD = 4.92 cm for 20 weeks 6 days. HC = 19.34 cm for 21 weeks 4 days. AC = 16.50 cm for 21 weeks 4 days. FL = 3.67 cm for 21 weeks 5 days. HC/AC ratio = 1.17. Overall, the estimated sonographic gestational age is 21 weeks and 3 days for an estimated date of de livery of 01/05/2021. The estimated date of delivery provided by the last menstrual period is . Estimated weight is 434 grams. A 4 chamber heart is identified with positive cardiac activity. The estimated heart rate is 150 beats per minute. Bilateral upper and lower extremities are identified. There is a three-vessel cord with cord insertion visualized. stomach and urinary bladder are identified. Both kidneys are seen. The spine and brain are unremarkable. No obvious anatomic abnormalities are identified. The maternal adnexal regions are unremarkable. IMPRESSION: Single intrauterine fetus with normal heart rate and gestational age based on ultrasound measurements of 21 weeks and 3 days. The estimated gestational age based on LMP is 20 weeks and 3 days. [facility] anatomy survey. Electronically signed by: Andree Posadas MD (08/28/2020 4:33 PM) [id number]
== END ==
LOC: US 15:52
PROVIDERS: ATTEND Obstetrics & Gynecology
DX: Z34.82 Encounter for supervision of other normal pregnancy, second trimester (principal); Z3A.21 21 weeks gestation of pregnancy
CPT/HCPCS: 76805

== ENCOUNTER → 2020-10-08 | Outpatient (CLI) | payer OTHER ==
[2020-10-08 10:12] LABS: BASO # 0.1 x10^3/uL (0.0-0.2); BASO % 1 % (0-3); EOS # 0.1 x10^3/uL (0.0-0.7); EOS % 1 % (0-3); HEMATOCRIT 35.5 % (36.0-47.0); LYMPH # 2.4 x10^3/uL (1.0-4.8); LYMPH % 17 % (24-48); MEAN CORPUSCULAR HEMOGLOBIN 30 pg (25-35); MEAN CORPUSCULAR HGB CONC 34 g/dL (31-37); MEAN CORPUSCULAR VOLUME 88 fL (79-100); MONO # 0.8 x10^3/uL (0.0-1.1); MONO % 6 % (0-9); NEUT # 10.6 x10^3/uL (1.8-7.7); NEUT % 76 % (31-73); PLATELET COUNT 309 x10^3/uL (140-400); RED BLOOD COUNT 4.02 x10^6/uL (3.50-5.40); RED CELL DISTRIBUTION WIDTH 13.5 % (11.5-14.5)
== END ==
LOC: LAB 08:14
PROVIDERS: ATTEND Obstetrics & Gynecology
DX: Z34.92 Encounter for supervision of normal pregnancy, unspecified, second trimester (principal); Z3A.26 26 weeks gestation of pregnancy
CPT/HCPCS: 36415; 82947; 82950; 85025; 86850

== ENCOUNTER → 2021-09-15 | Outpatient (CLI) | payer BC, OTHER ==
--- NOTE | 2021-09-15 11:22 | RAD ---
EXAMINATION: Right breast ultrasound INDICATION: Patient presents with follow-up right breast ultrasound probably benign intramammary lymp h node previously seen on diagnostic mammogram and ultrasound from 05/19/2017 COMPARISON: Mammogram and ultrasound from 05/19/2017 FINDINGS: Ultrasound at the 10:00 position, 11 cm deep to the nipple redemonstrates a normal intramam ragini lymph node with a uniformly thin cortex and a preserved fatty hilum that measures up to 2 mm in greatest thickness. This correlates in size, shape, and location with the previously noted mammograph ic and sonographic findings. No suspicious masses or architectural distortion. IMPRESSION: BI-RADS 2. Benign findings. Recommend starting annual screening mammography starting at t he age of 40, unless otherwise indicated. Electronically signed by: Max Chairez DO (09/15/2021 8:45 AM) [id number]
--- NOTE | 2021-09-15 11:23 | RAD ---
EXAM: Pelvic sonogram. HISTORY: Pain. TECHNIQUE: Transabdominal and transvaginal sonographic imaging of the pelvis was performed. COMPARISON: None. FINDINGS: The uterus is normal in size. The endometrial stripe measures 7.3 mm in thickness. There is trace fluid within the endometrial cavity. The ovaries are normal in size and demonstrate normal blo od flow. There is a 1.1 cm dominant right ovarian follicle. The left ovarian follicles are in a predo minantly peripheral distribution. There is no pelvic free fluid. IMPRESSION: 1. 1.1 cm physiologic dominant right ovarian follicle. The left ovarian follicles are in a predominan tly peripheral distribution. However, there is no similar finding involving the right ovary to sugges t polycystic ovary syndrome. 2. Trace endometrial fluid. Electronically signed by: Andree Posadas MD (09/15/2021 9:39 AM) [facility]
== END ==
LOC: US 08:07
PROVIDERS: ATTEND Nurse Practitioner Family
DX: N63.11 Unspecified lump in the right breast, upper outer quadrant (principal); R92.8 Other abnormal and inconclusive findings on diagnostic imaging of breast; R10.2 Pelvic and perineal pain
CPT/HCPCS: 76641; 76830; 76856